=== PATIENT | female | born 2000 | race African-American/Black ===

== ENCOUNTER 2022-09-19 14:58 | Emergency (ER) | payer SELFPAY ==
[~2022-09-19] VITALS: Ht 172.7 cm; Wt 73.0 kg
[2022-09-19 15:04] VITALS: BP 117/73
[2022-09-19] MEDS ORDERED: DICYCLOMINE HCL 10MG CAPSULE PO ONE (17:15)
[2022-09-19] MEDS ORDERED: MAGNESIUM/ALUMINUM HYDROXIDE/SIMETHICONE 30ML UDC PO ONE (17:15)
[2022-09-19] MEDS ORDERED: FAMOTIDINE 20MG TABLET PO ONE (17:15)
[2022-09-19] MEDS ORDERED: ONDANSETRON HCL 4MG TABLET PO ONE (17:15)
[2022-09-19 17:39] LABS: BASOPHILS % 0.9 % (0.0-2.0); EOSINOPHILS % 0.4 % (0.0-5.0); HEMOGLOBIN. 11.7 g/dL (12.0-16.0); LYMPHOCYTES % 25.4 % (20.0-50.0); MEAN CORPUSCULAR HEMOGLOBIN 22.4 pg (28.0-32.0); MEAN CORPUSCULAR VOLUME 71.1 fL (81.0-99.0); MEAN PLATELET VOLUME 8.6 fl (7.4-10.4); MONOCYTES % 4.6 % (2.0-8.0); NEUTROPHILS % 68.7 % (40.0-76.0); PLATELET 335 x1000/uL (130-400); RED BLOOD CELL COUNT 5.21 mill/uL (4.2-5.4); RED CELL DISTRIBUTION WIDTH 15.7 % (11.6-14.6)
[2022-09-19 17:48] LABS: CHLORIDE 108 mEq/L (98-107)
[2022-09-19 18:50] LABS: HCG SCREEN NEGATIVE
== END 2022-09-19 17:25 | disposition left against medical advice (07) ==
LOC: ER 14:58
DX: R11.2 Nausea with vomiting, unspecified (principal); R42 Dizziness and giddiness
CPT/HCPCS: 36415; 80053; 84703; 85025; 99283